=== PATIENT | female | born 2000 | race Caucasian/White ===

== ENCOUNTER 2024-05-16 13:55 | Day surgery (SDC) | payer OTHER ==
[2024-05-13 17:31] VITALS: BMI 27.0
[~2024-05-16 13:55] MED LIST: oxyCODONE HCL 5 MG TABLET PO PRN
[2024-05-16 14:21] VITALS: TEMP 97.7
[2024-05-16] MEDS ORDERED: MIDAZOLAM HCL 2 MG/2 ML SINGLE DOSE VIAL ONE (17:01)
[2024-05-16] MEDS ORDERED: PROPOFOL 20 ML ONE ×2 (17:01→18:33)
[2024-05-16] MEDS ORDERED: DEXAMETHASONE SOD PHOSPHATE 10 MG/1 ML VIAL ONE (17:09)
[2024-05-16] MEDS ORDERED: ROPIVACAINE HCL/PF 100 MG/20 ML VIAL ONE (17:09)
[2024-05-16] MEDS ORDERED: ACETAMINOPHEN INJECTION 100 ML ONE (17:58)
[2024-05-16] MEDS ORDERED: ONDANSETRON 4 MG/2 ML VIAL ONE (18:53)
[2024-05-16] MEDS: ACETAMINOPHEN 1000 MG/100 ML BAG IVPB PRN (19:17)
[2024-05-16 19:26] VITALS: PULSE 72; RESP 14
[2024-05-16 20:07] VITALS: BP 106/66
== END 2024-05-16 21:30 | disposition home or self-care (01) ==
LOC: FASU 13:55
PROVIDERS: ATTEND Orthopaedic Surgery Sports Medicine
PROC: 0QSK04Z Reposition Left Fibula with Internal Fixation Device, Open Approach (ICD-10-PCS; principal; 2024-05-16 18:00)
DX: S82.62XA Displaced fracture of lateral malleolus of left fibula, initial encounter for closed fracture (principal); X58.XXXA Exposure to other specified factors, initial encounter; Y93.9 Activity, unspecified; Y92.9 Unspecified place or not applicable
CPT/HCPCS: 27792; 27829; C1713; 73610-TC-LT-FY; 81025; 94760; J0131; J1100